=== PATIENT | male | born 1995 | race Hispanic/Latino ===

== ENCOUNTER 2017-05-29 12:29 | Inpatient (IN) | payer OTHER ==
[~2017-05-29] VITALS: Ht 167.6 cm; Wt 68.2 kg
[2017-05-29 13:48] LABS: HEMATOCRIT 44.8 % (38.0-50.0); HEMOGLOBIN 15.5 G/DL (12.5-16.6); MCH 28.9 PG (29.0-34.0); MCHC 34.6 G/DL (30.0-36.0); MCV 83.6 FL (86-99); PLATELET COUNT 231 K/uL (156-360); RBC DIS.WIDTH-CV 11.5 % (11.8-14.6); RBC DIS.WIDTH-SD 34.8 % (39-53); RED BLOOD COUNT 5.36 M/uL (4.00-5.50); WHITE BLOOD COUNT 6.3 K/uL (4.1-10.2)
[2017-05-29 14:03] LABS: ALBUMIN 4.7 g/dL (3.2-4.8); CHLORIDE 105 mEq/L (99-109); POTASSIUM 4.2 mEq/L (3.7-5.4); SODIUM 140 mEq/L (136-147)
[2017-05-29 14:05] LABS: GLUCOSE 107 mg/dL (70-99); TOTAL PROTEIN 7.7 g/dL (6.4-8.3)
[2017-05-29 14:07] LABS: TOTAL BILIRUBIN 0.3 mg/dL (0.0-1.0)
[2017-05-29 14:08] LABS: SERUM ETHYL ALCOHOL < 10 mg/dL
[2017-05-29 14:09] LABS: ALKALINE PHOSPHATASE 119 IU/L (3-129); CREATININE 0.9 mg/dL (0.6-1.3)
[2017-05-29 14:10] LABS: AST (GOT) 35 IU/L (2-34); UREA NITROGEN (BUN) 15 mg/dL (9-23)
[2017-05-29 14:17] LABS: GFR ESTIMATE (CALCULATED) > 59 mL/min/ (58.99-99999)
[2017-05-29 14:27] LABS: ALT (GPT) 45 IU/L (3-49); LIPASE 23 U/L (1.0-51.0)
[2017-05-29 15:15] LABS: AMPHETAMINE NEGATIVE (500 ng/mL); BARBITURATES NEGATIVE (200 ng/mL); BENZODIAZEPINES NEGATIVE (150 ng/mL); BUPRENORPHINE NEGATIVE (10 ng/mL); COCAINE NEGATIVE (150 ng/mL); METHADONE NEGATIVE (200 ng/mL); METHAMPHETAMINE NEGATIVE (500 ng/mL); OPIATES (MORPHINE) NEGATIVE (100 ng/mL); OXYCODONE NEGATIVE (100 ng/mL); PHENCYCLIDINE NEGATIVE (25 ng/mL); PROPOXYPHENE NEGATIVE (300 ng/mL); THC CANNABINOIDS NEGATIVE (50 ng/mL); TRICYCLIC ANTIDEPRESSANTS NEGATIVE (300 ng/mL)
[2017-05-29 18:22] VITALS: BP 128/76
[2017-05-29 18:23] VITALS: BP 128/76
[2017-05-30 07:43] VITALS: BP 138/70
[2017-05-30] MEDS ORDERED: RISPERDAL1 MG PO (07:51)
[2017-05-30 15:38] VITALS: BP 125/58
[2017-05-31 08:11] VITALS: BP 147/67
[2017-05-31 10:02] LABS: THYROTROPIN (TSH) 1.3 MIU/L (0.4-5.5)
[2017-05-31 15:43] VITALS: BP 134/62
[2017-06-01 09:14] VITALS: BP 140/75
[2017-06-01 15:09] VITALS: BP 134/59
[2017-06-02 08:02] VITALS: BP 133/67
[2017-06-02 15:25] VITALS: BP 138/63
[2017-06-03 07:52] VITALS: BP 116/72
[2017-06-03] MEDS ORDERED: ARIPIPRAZOLE15 MG PO (09:00)
== END 2017-06-03 10:43 | disposition home or self-care (01) | DRG 885 ==
LOC: EME 12:29 → 1WEST 16:13 → EDOF 16:13 → ENRESERV 18:19 → 1WEST 18:19
PROVIDERS: Emergency Medicine
DX: F20.81 Schizophreniform disorder (principal); K21.9 Gastro-esophageal reflux disease without esophagitis; Z81.8 Family history of other mental and behavioral disorders
CPT/HCPCS: 70551; 80053; 83690; 84443; 85027; 90839; 99281; 99283; G0480; Q0177